=== PATIENT | female | born 1980 | race American Indian/Alaskan Native ===

== ENCOUNTER 2018-04-20 06:26 | Day surgery (SDC) | payer BC ==
--- NOTE | 2018-04-20 07:57 | Anesthesia Consultation ---
Anesthesia Consult and Med Hx Date of service: 04/20/18 - Airway Anesthetic Teeth Evaluation: Good (missing one right upper molar. ), Caps, Crowns ROM Head & Neck: Adequate Mental/Hyoid Distance: Adequate Mallampati Class: Class II (large 2+ tonsils) Intubation Access Assessment: Probably Good - Pulmonary Exam CTA: Yes - Cardiac Exam Cardiac Exam: RRR - Pre-Operative Health Status ASA Pre-Surgery Classification: ASA2 Proposed Anesthetic Plan: General - Pre-Anesthesia Comment Pre-Anesthesia Comments: Patient never had anesthetic exposure. No family history of difficuly with anesthic exposure. H/O motion sickness. Tolerates 6 METS. No h/o GERD. No chest pain or SOB. No cold or flu - Pulmonary Hx Smoking: No Hx Asthma: No Hx Respiratory Symptoms: No SOB: No Hx Sleep Apnea: Yes (mild. does no use CPAP) - Cardiovascular System Hx Hypertension: Yes (15YEARS) Hx Coronary Artery Disease: No - Gastrointestinal Hx Ulcer: No Hx Gastroesophageal Reflux Disease: No - Other Systems Hx Alcohol Use: No Hx Substance Use: No Hx Cancer: No Hx Obesity: Yes
--- NOTE | 2018-04-20 07:58 | Anesthesia Day of Surgery ---
Anesthesia Day of Surgery - Day of Surgery Patient Examined: Yes Patient H&P Reviewed: Yes Patient is NPO: Yes
[2018-04-20] MEDS ORDERED: VERSED IV PRN (07:59)
[2018-04-20] MEDS ORDERED: VERSED IV NR (08:00)
[2018-04-20] MEDS ORDERED: DEMEROL IV PRN (08:00)
[2018-04-20] MEDS ORDERED: TRANSDERM-SCOP TD NR (08:00)
[2018-04-20] MEDS ORDERED: PERCOCET 5/325 PO PRN (08:00)
[2018-04-20] MEDS ORDERED: LACTATED RINGERS 1,000 ML IV SCH ×2 (08:00)
[2018-04-20] MEDS ORDERED: ZOFRAN IV PRN (08:00)
[2018-04-20] MEDS ORDERED: NARCAN 0.4 MG/1 ML IV PRN (08:00)
[2018-04-20] MEDS ORDERED: ANCEF/STERILE WATER 2 GM/20 ML IV NR (08:00)
[2018-04-20 08:39] LABS: Basophils % (Auto) 0.9 % (0.0-1.8); Eosinophils % (Auto) 0.5 % (0.0-4.3); Hematocrit 33.6 % (30.3-42.9); Lymphocytes # (Auto) 1.2 K/mm3 (1.2-5.4); Lymphocytes % (Auto) 23.3 % (13.4-35.0); Mean Corpuscular HGB Conc 33 % (30-34); Mean Corpuscular Volume 76 fl (79-97); Monocytes # (Auto) 0.4 K/mm3 (0.0-0.8); Monocytes % (Auto) 7.3 % (0.0-7.3); Platelet Count 369 K/mm3 (140-440); Red Blood Count 4.46 M/mm3 (3.65-5.03); Red Cell Distribution Width 16.1 % (13.2-15.2)
[2018-04-20 08:41] LABS: Mean Corpuscular Hemoglobin 25 pg (28-32)
[2018-04-20] MEDS ORDERED: DIPRIVAN 10 MG/ML IV ONE (10:34)
[2018-04-20] MEDS ORDERED: DILAUDID ONE ×2 (10:35→12:22)
[2018-04-20] MEDS ORDERED: XYLOCAINE MPF 2% ONE (11:45)
[2018-04-20] MEDS ORDERED: QUELICIN ONE (11:45)
[2018-04-20] MEDS ORDERED: NACL 0.9% IR ONE (13:02)
[2018-04-20] MEDS ORDERED: NACL 0.9% 1000 ML 1,000 ML ONE (13:34)
[2018-04-20] MEDS ORDERED: ZOFRAN ONE (13:54)
[2018-04-20] MEDS ORDERED: DECADRON ONE (13:54)
[2018-04-20] MEDS: DILAUDID IV PRN ×2 (14:10→14:20)
--- NOTE | 2018-04-20 14:10 | Operative Report ---
PREOPERATIVE DIAGNOSIS: Macromastia. POSTOPERATIVE DIAGNOSIS: Macromastia. PROCEDURE: Bilateral reduction mammoplasty. SURGEON: Hesham Parsons MD RELATIONSHIP ADVISOR: Jori Hill CSA FINDINGS: 820 grams removed from the right breast, 826 grams removed from the left breast. DESCRIPTION OF PROCEDURE: The patient was brought into the operating room and placed on the table in supine position. Following administration of general anesthesia, bilateral breasts were prepped with Betadine solution and draped in usual sterile manner. A #10 blade scalpel was used to make a circumareolar skin incision followed by de-epithelization of an inferior dermal pedicle. Modified Sheikh pattern skin markings were incised with scalpel, deepened through subcutaneous fat and breast tissue using the electrocautery. Skin flaps were raised in standard manner as was fashioning of an inferior central mound pedicle. Breast tissue was resected and sent to pathology as specimen. Hemostasis was controlled using electrocautery. Closure was performed over 10 mm CHARLEY drains using interrupted and running subcuticular 2-0 Monocryl sutures. Mastisol, Steri-Strips, and sterile dressings applied. The patient tolerated the procedure well and returned to recovery room in stable condition. JOB# [id number] FTW/NTS
[2018-04-20 15:12] VITALS: BP 114/62
--- NOTE | 2018-04-20 18:56 | Post Anesthesia Evaluation ---
- Post Anesthesia Evaluation Patient Participated: Yes Airway Patent: Yes Stable Respiratory Function: Yes Nausea/Vomiting: No Temp > 96.8F: Yes Pain Manageable: Yes Adequeate Hydration: Yes Anesthesia Complications: No Block Receding Appropriately: Not Applicable Patient on Ventilator: No
== END 2018-04-20 16:00 | disposition home or self-care (01) ==
LOC: OR 06:26
PROVIDERS: ATTEND Plastic Surgery
DX: N62 Hypertrophy of breast (principal); N64.89 Other specified disorders of breast; G47.30 Sleep apnea, unspecified; I10 Essential (primary) hypertension; E66.9 Obesity, unspecified; Z68.38 Body mass index [BMI] 38.0-38.9, adult
CPT/HCPCS: 19318; 36415; 81025; 84132; 85025; 88305; J0330; J0690; J1100; J1170; J2250; J2405; J2704; J7030; J7120